=== PATIENT | male | born 1970 | race Caucasian/White ===

== ENCOUNTER 2022-11-29 12:56 | Outpatient (CLI) | payer OTHER ==
--- NOTE | 2022-11-29 12:10 | SLEEP CARE CONSULTATION ---
Information from patient questionnaire entered by Krysten Larose. I have reviewed and concur with the information entered by Krysten Larose. This document represents the service I personally performed and the decisions made by me, Zina Oconnell ARNP. History of Present Illness Service Date and Time: 11/29/2022 1120 Reason for Visit: New patient, sleep apnea on CPAP therapy Chief Complaint: reports: Other (UPDATE SUPPLIES) Date of Onset: 2002 Usual bedtime: 2129 Time it takes to fall asleep: 15-20MINS Snores at night: Yes Observed to quit breathing while asleep: Yes Sleeps alone due to snoring: No Number of times waking at night: 3-4 Reasons for waking at night: reports: Choking, Snoring, Gasping for air, Pain Toss, Turn, or Twitch while sleeping: Yes Recalls having dreams: Yes Usually gets out of bed at: 5-6 Feels refreshed in the morning: Yes Morning headache: No Sleepy or fatigued during the day: Yes Ever fallen asleep while driving: No Takes day naps: Yes Dreams during day naps: No Prior sleep studies: Yes Year and Where: [facility] 2017 Additional HPI information: ESTEVAN LEWIS was previously diagnosed to have unknown, AHI unknown, sleep apnea- hypopnea syndrome at [facility] but we do not have a copy of this today (it has been requested) and comes in today to establish care for BIPAP therapy. - Parasomnia Symptoms Ever been unable to move upon waking from sleep: No Walks in sleep: No Talks in sleep: Yes Ever acted out dreams in sleep: No Ever felt weak in the knees when startled or emotional: No Bothered by creepy, crawly, restless sensations in legs: No Problems with memory or concentration: Yes CPAP Compliance Data - Data Reviewed with Patient Average duration of nightly device use: 7 hours 16 minutes Compliance rate %: 92 (86/90 days used) Current pressure setting (cmH2O): 13/9 Central apnea: 4.3 Average large leak: 3.9 L/min Compliance data discussion: He is getting his supplies from [employer]. He is using an AirFit 10 full face mask. He has an Aircurve 10 Vauto BIPAP that was last updated in 2017. Subjective Patient concerns: reports: other (headgear may need to be smaller). denies: aerophagia, mask discomfort, air blowing in eyes, mask leak noise, condensation in mask/hose, nasal congestion, dry mouth, nose, throat, epistaxis Observed to snore while using device: No Current pressure setting perceived as: comfortable On therapy, patient: reports: sleeping better, awakening more refreshed, being more awake and alert during the day, more rested overall. 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 Patient is and lives in . Have you smoked in the past 12 months: Yes Years of smokin Alcohol use: No Caffeine use: Yes Caffeine amount and frequency: 4 CUPS 2 MORNING 2 AFTERNOON Family History Family history of sleep disordered breathing: No Allergies and Home Medications Known drug allergies: No Drug allergies reviewed: Yes Home medication list reviewed: Yes (Miralax; sudafed, prn) Review of Systems Cardiovascular: denies: high blood pressure Respiratory: reports: chronic cough Gastrointestinal: reports: abdominal pain. 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 denies: headaches Psychiatric: reports: Attention Deficit Hyperactivity Ear/Nose/Throat: reports: nasal congestion, tonsillectomy Endocrine: reports: too hot or cold. denies: thyroid disease Musculoskeletal: reports: muscle pain or cramping Immunologic: reports: other Physical Exam Vital signs obtained and entered by: KRYSTEN Anand MA Blood Pressure: 110/62 (LEFT ARM) Cuff size: regular Heart Rate: 71 O2 Saturation: 98 Height: 6 ft 2 in Weight: 187 lb 12.8 oz Body Mass Index: 24.0 BMI Classification: Normal Neck circumference: 16 Heart: regular rate and rhythm Lungs: clear bilaterally Impression and Plan 1. Obstructive Sleep Apnea-Hypopnea Syndrome, unknown, with good treatment compliance and good apnea control. On BIPAP therapy, the patient has better sleep quality and is more rested overall. Patient has been on a BiPAP for many years. He states he was originally diagnosed in 2002. He last updated his device around 2017. He has a ResMed Aircurve 10. The patients CPAP is over 5 years old and of reasonable use. Thus, the CPAP will be updated. Once I have a copy of his sleep study that has been requested by the patient, I will be able to write his prescription for the BiPAP. Compliance guidelines for new device and follow up discussed. Patient's apnea severity and rationale for treatment to reduce apnea, improve sleep quality and reduce cardiovascular and cerebrovascular events was reviewed. I also reviewed the benefit of consistent device use of BIPAP for anxiety, asthma and attention deficit. * Continue BIPAP pressure at 13/9 cmH2O * Update machine * Update supplies * Notify me if snoring with mask or feeling that the pressure is too much or too little * Attempt to lose weight * Call this office if any problems using BIPAP * Return for follow up one month after obtaining new device, or sooner if concerns arise Counseling Topics: Spare mask Prescriptions: Auto CPAP, Device supplies Visit Type: In Office Time Spent with Patient (minutes): 32 Provider Statement: I spent 100% of the Face to Face Visit with the patient with greater than 50% spent counseling the patient and coordination of care.
[2022-11-29 12:14] VITALS: BP 110/62
== END 2022-11-29 12:57 | disposition home or self-care (01) ==
LOC: SC 12:56
PROVIDERS: ATTEND Nurse Practitioner Family
DX: G47.33 Obstructive sleep apnea (adult) (pediatric) (principal)
CPT/HCPCS: 99203; 99212

== ENCOUNTER 2023-06-06 15:22 | Outpatient (CLI) | payer OTHER ==
--- NOTE | 2023-06-06 16:00 | Sleep Patient Instructions ---
Sleep Center Visit Summary - Patient Visit Information Reason for Visit: 6-month follow-up - Patient Instructions Additional Instructions: You were here for follow up of BIPAP therapy. You will be continued on BiPAP therapy with pressure at 13/9 cmH2O. We are still waiting for you to get your replacement BiPAP, please call us to schedule follow-up once you get the new device. You may contact us sooner for any questions or concerns. - Clinic Information Contact: [facility] [address] [place] [id number] [email or web address] T: [phone]
--- NOTE | 2023-06-06 16:06 | SLEEP CARE CONSULTATION ---
Information from patient questionnaire entered by Krysten Larose. I have reviewed and concur with the information entered by Krysten Larose. This document represents the service I personally performed and the decisions made by me, Zina Oconnell ARNP. History of Present Illness Service Date and Time: 06/06/2023 1522 Previous diagnosis: Moderate, Obstructive Sleep Apnea-Hypopnea Syndrome AHI: 20.1 (in ) Reason for follow up: six month (F/U PATIENT NEVER RECIEVED MACHINE) Equipment type: BiPAP Equipment obtained from: [employer] (getting supplies) Mask style: Full face Mask brand: Resmed (AirFit F10) Backup mask available: Yes Last cushion change: almost a month Prior sleep studies: Yes Year and Where: [facility] 2017 HPI additional information: ESTEVAN LEWIS was diagnosed to have moderate, AHI 20.1, obstructive sleep apnea- hypopnea syndrome and returned today for BIPAP therapy six month follow-up. Sleep Study - Results Prior sleep studies: Yes Year and Where: [facility] 2016 Subjective Patient concerns: reports: other (headgear wears out in 4 months). denies: aerophagia, mask discomfort, air blowing in eyes, mask leak noise, condensation in mask/hose, nasal congestion, dry mouth, nose, throat, epistaxis Observed to snore while using device: No Current pressure setting perceived as: comfortable On therapy, patient: reports: sleeping better, awakening more refreshed, being more awake and alert during the day, more rested overall. denies: drowsiness while driving Initial [place] Sleepiness Scale score: 10 (11/28/22) Current [place] Sleepiness Scale score: 3 (06/06/2023) Allergies and Home Medications Known drug allergies: No Drug allergies reviewed: Yes Home medication list reviewed: Yes (no changes) Allergy and home medication list: Allergies No Known Drug Allergies Allergy (Verified 06/02/23 09:51) Review of Systems Review of systems same as previous: Yes (NO CHANGE) Physical Exam Vital signs obtained and entered by: KRYSTEN Anand MA Blood Pressure: 128/84 (LEFT ARM) Cuff size: regular Heart Rate: 81 O2 Saturation: 98 Height: 6 ft 2 in Weight: 195 lb 12.8 oz Body Mass Index: 25.1 BMI Classification: Overweight Impression and Plan 1. Obstructive Sleep Apnea-Hypopnea Syndrome, moderate, with unknown treatment compliance and unknown apnea control. He did not bring in his machine or SD card today. He will bring it in tomorrow for us to get the download to forward to his DME. On BIPAP therapy, the patient has better sleep quality and is more rested overall. He came to to followup on not getting his replacement device. He was able to contact [facility] while in the waiting room and they have the order and are processing it now. He will call us once he gets his new BIPAP for a compliance followup visit. Patient's apnea severity and rationale for treatment to reduce apnea, improve sleep quality and reduce cardiovascular and cerebrovascular events was reviewed. I also reviewed the benefit of consistent device use of BIPAP for anxiety, asthma and attention deficit. * Continue BIPAP pressure at 13/9 cmH2O * Order processing for new device at DME * Notify me if snoring with mask or feeling that the pressure is too much or too little * Attempt to lose weight * Call this office if any problems using BIPAP * Return for follow up one month after obtaining new machine, or sooner if concerns arise Counseling Topics: Spare mask Visit Type: In Office Time Spent with Patient (minutes): 17 Provider Statement: I spent 100% of the Face to Face Visit with the patient with greater than 50% spent counseling the patient and coordination of care.
[2023-06-06 16:16] VITALS: BP 128/84; O2SAT 98
== END 2023-06-06 15:23 | disposition home or self-care (01) ==
LOC: SC 15:22
PROVIDERS: ATTEND Nurse Practitioner Family
DX: G47.33 Obstructive sleep apnea (adult) (pediatric) (principal); E66.3 Overweight; Z68.25 Body mass index [BMI] 25.0-25.9, adult
CPT/HCPCS: 99212

== ENCOUNTER 2023-09-13 14:48 | Outpatient (CLI) | payer OTHER ==
--- NOTE | 2023-09-13 15:16 | Sleep Patient Instructions ---
Sleep Center Visit Summary - Patient Visit Information Reason for Visit: First compliance with new device follow-up - Patient Instructions Additional Instructions: You were here for follow up of BIPAP therapy. You will be continued on BiPAP therapy with pressure at 13/9 cmH2O. You should follow up with sleep care in 12 months. You may contact us sooner for any questions or concerns. - Clinic Information Contact: [facility] [address] [place] [id number] [email or web address] T: [phone]
--- NOTE | 2023-09-13 15:23 | SLEEP CARE CONSULTATION ---
Information from patient questionnaire entered by Krysten Larose. I have reviewed and concur with the information entered by Krysten Larose. This document represents the service I personally performed and the decisions made by me, Zina Oconnell ARNP. History of Present Illness Service Date and Time: 09/13/2023 1448 Previous diagnosis: Moderate, Obstructive Sleep Apnea-Hypopnea Syndrome AHI: 20.1 (in ) Reason for follow up: first compliance after device update Equipment type: BiPAP (RESMED AirCurve 10 VAuto, S/U 07/04/23) Equipment obtained from: [employer] (got his supplies but does not want to use them anymore; he is changing back to the [facility]) Mask style: Full face Mask brand: Resmed (AirFit 10) Backup mask available: Yes Last cushion change: 10 days ago Prior sleep studies: Yes Year and Where: [facility] 2017 HPI additional information: ESTEVAN LEWIS was diagnosed to have moderate, AHI 20.1, obstructive sleep apnea- hypopnea syndrome and returned today for BiPAP therapy first compliance after up dating device follow-up. Sleep Study - Results Prior sleep studies: Yes Year and Where: [facility] 2017 CPAP Compliance Data - Data Reviewed with Patient Average duration of nightly device use: 8 HRS 3 MINS Compliance rate %: 73 (07/04/23-; 66/90 days used) Current pressure setting (cmH2O): 13/9 Average residual AHI: 1.8 Central apnea: 0 Obstructive apnea: 1 Hypopnea: 0.7 Average large leak: 6 L/min Compliance data discussion: He received the Resmed AirCurve 10 but he does not want to have to pay the copay monthly for it. He received another ResMed AirCurve 10 from the MD and will be sending the other one back. The SN# is [id number] for his new Resmed BiPAP. Subjective Patient concerns: denies: aerophagia, mask discomfort, air blowing in eyes, mask leak noise, condensation in mask/hose, nasal congestion, dry mouth, nose, throat, epistaxis Observed to snore while using device: No Current pressure setting perceived as: comfortable On therapy, patient: reports: sleeping better, awakening more refreshed, being more awake and alert during the day, more rested overall. denies: drowsiness while driving Initial [place] Sleepiness Scale score: 10 (11/28/22) Current [place] Sleepiness Scale score: 1 Allergies and Home Medications Known drug allergies: No Drug allergies reviewed: Yes Home medication list reviewed: Yes (trazodone, miralax) Allergy and home medication list: Allergies No Known Drug Allergies Allergy (Verified 08/11/23 11:46) Review of Systems Review of systems same as previous: Yes (no changes) Physical Exam Vital signs obtained and entered by: ZINA BOSS-Cheng Blood Pressure: 108/66 Cuff size: wrist (right) Heart Rate: 79 O2 Saturation: 100 Height: 6 ft 2 in Weight: 196 lb 9.6 oz Body Mass Index: 25.2 BMI Classification: Overweight Impression and Plan 1. Obstructive Sleep Apnea-Hypopnea Syndrome, moderate, with good treatment compliance and good apnea control. On BiPAP therapy, the patient has better sleep quality and is more rested overall. He received his BiPAP from [employer] but has decided he does not want to pay the co-pay monthly to be able to keep that machine. [facility] ResMed AirCurve 10 that is set up for him. He is going to send the one from [employer] back and [facility]. Patient has significant improvement of their sleep apnea and is satisfied with current CPAP therapy. Patient denies problems with oral dryness, nasal congestion, epistaxis, skin irritation or aerophagia. Patient's apnea severity and rationale for treatment to reduce apnea, improve sleep quality and reduce cardiovascular and cerebrovascular events was reviewed. I also reviewed the benefit of consistent device use of BiPAP for anxiety, asthma, attention deficit. * Continue BiPAP pressure at 13/9 cmH2O * Notify me if snoring with mask or feeling that the pressure is too much or too little * Call this office if any problems using BiPAP * Return for follow up in 12 months, or sooner if concerns arise Follow up with Sleep Care in: 1 year Visit Type: In Office Time Spent with Patient (minutes): 20 Provider Statement: I spent 100% of the Face to Face Visit with the patient with greater than 50% spent counseling the patient and coordination of care.
[2023-09-13 15:30] VITALS: BP 108/66; O2SAT 100
== END 2023-09-13 14:49 | disposition home or self-care (01) ==
LOC: SC 14:48
PROVIDERS: ATTEND Nurse Practitioner Family
DX: G47.33 Obstructive sleep apnea (adult) (pediatric) (principal)
CPT/HCPCS: 99212; 99213